=== PATIENT | male | born 1965 | race Caucasian/White ===

== ENCOUNTER 2017-10-10 15:49 | Emergency (ER) | payer OTHER, SELFPAY ==
[2017-10-10 15:50] VITALS: BP 135/94; PULSE 98; RESP 18; TEMP 36.7; O2SAT 98; BMI 26.1
[2017-10-10 16:09] LABS: Basophils % 0.4 % (0.1-2.0); Eosinophils # 0.3 K/mm3 (0.0-0.4); Eosinophils % 2.6 % (0.1-12.0); Hematocrit 47.4 % (42.0-52.0); Hemoglobin 15.6 g/dL (14.1-18.0); Lymphocytes # 3.6 K/mm3 (0.7-4.5); Lymphocytes % 35.1 K/mm3 (10-50); Mean Corpuscular Hemoglobin 29.5 pg (27.0-31.2); Mean Corpuscular Volume 89.3 fl (80-94); Mean Platelet Volume 7.8 fl (7.4-10.4); Monocytes # 0.7 K/mm3 (0.1-1.0); Neutrophils # 5.6 K/mm3 (1.8-7.8); Platelet Count 253 K/mm3 (142-424); Red Blood Count 5.31 M/mm3 (4.60-6.20); Red Cell Distribution Width 12.8 % (11.5-17.5); White Blood Count 10.2 K/mm3 (4.8-10.8)
--- NOTE | 2017-10-10 16:14 | HMH.EDGENADL ---
ED Disposition Clinical Impression: Epiploic appendagitis Disposition: Home, Self-Care Condition on Discharge: Good Additional Instructions: Additional instructions for ABDOMINAL PAIN: See your physician as soon as possible for further evaluation. Return immediately if worsening abdominal pain, vomiting, shortness of breath, fever, vomiting of blood or abdominal distention. Referrals: Deepika Santo [Primary Care Provider] - 10/12/17 - Critical Care Critical Care Time: No Attestation: On , the high probability of a clinically significant, sudden or life threatening deterioration of the following system(s) required my full and direct attention, intervention and personal management. The time I documented below is in addition to time spent performing reported procedures but includes the following listed in this critical care notation. Medical Decision Making Vital Signs: 10/10/17 15:50 Temperature 98.0 F Temperature Source Oral Pulse Rate [Right Brachial] 98 H Respiratory Rate 18 Blood Pressure [Right Arm] 135/94 Blood Pressure Mean [Right Arm] 107 Blood Pressure Source [Right Arm] Automatic Cuff Blood Pressure Position [Right Arm] Sitting 02 Sat by Pulse Oximetry 98 Oxygen Delivery Method Room Air - Lab Data Lab Results 10/10/17 16:00: WBC 10.2, RBC 5.31, Hgb 15.6, Hct 47.4, MCV 89.3, MCH 29.5, MCHC 33.0, RDW 12.8, Plt Count 253, MPV 7.8, Neut % (Auto) 55.0, Lymph % (Auto) 35.1, [place] % (Auto) 7.0, Eos % (Auto) 2.6, Baso % (Auto) 0.4, Neut # (Auto) 5.6, Lymph # (Auto) 3.6, [place] # (Auto) 0.7, Eos # (Auto) 0.3, Baso # (Auto) 0.0 10/10/17 16:00: Sodium 140, Potassium 3.9, Chloride 102, Carbon Dioxide 32, Anion Gap 9.9, BUN 14, Creatinine 1.39 H, Estimated Creat Clear 71, Estimated GFR 54 L, Est GFR ( Amer) 66, Glucose 120 H, Calcium 8.8, Total Bilirubin 0.3, AST 16, ALT 27, Alkaline Phosphatase 85, Total Protein 7.6, Albumin 3.8, Globulin 3.8 H, Albumin/Globulin Ratio 1.0 L 10/10/17 : Urine Color Yellow, Urine Appearance Clear, Urine pH 7.5, Ur Specific [place] 1.010, Urine Protein Negative, Urine Glucose (UA) Negative, Urine Ketones Negative, Urine Blood Negative, Urine Nitrate Negative, Urine Bilirubin Negative, Urine Urobilinogen 0.2, Ur Leukocyte Esterase Negative, Urine RBC Occasional, Urine WBC None, Ur Squamous Epith Cells Occasional, Urine Bacteria None Result diagrams: 10/10/17 16:00 10/10/17 16:00 Orders (Tests/Meds): ED MEDICATIONS Discontinued Medications Generic Name Dose Route Start Last Admin Trade Name David PRN Reason Stop Dose Admin Iopamidol 75 ml 10/10/17 16:57 10/10/17 16:59 [id number]; 75ml Vial IV 10/10/17 16:58 75 ml ONCE ONE Administration Sodium Chloride 1,000 ml 10/10/17 16:20 10/10/17 16:58 Sod Chlor 0.9% 1000ml Bag IV 10/10/17 16:21 1,000 ml BOLUS ONE Administration Sodium Chloride 10 ml 10/10/17 16:57 10/10/17 16:58 Rad-Saline Flush 10ml Syringe IV 10/10/17 16:58 10 ml ONCE ONE Administration - CT Data CT Scan: Abdomen, Pelvis Time Received: 17:[address] Reviewed: Yes: I have viewed the radiologist's interpretation Findings Narrative: Epiploic appendagitis left lower quadrant - Dirk Inquiry Pt receiving controlled substance: No Medical Decision Making Narrative: 4:20 PM: Declines pain medication. General Adult HPI - General Chief complaint: Abdominal Pain Stated complaint: Left Lower Abd Pain Mode of Arrival: Ambulatory Limitations: No Limitations Description of Symptoms (Recalled from ER Triage Doc. by RN): Pt reports L lower left abd pain x3 days, denies n/v/d. states today pain has been worse with movement - History of Present Illness HPI narrative: The patient complains of left lower quadrant pain for 3 days. Today it hurts worse when he moves and walks and therefore comes in for evaluation. No vomiting or diarrhea. He had some gas with it initially and thought passing gas might relie
[2017-10-10 16:21] LABS: Alanine Aminotransferase 27 U/L (12-78); Albumin Level 3.8 gm/dL (3.4-5.0); Alkaline Phosphatase 85 U/L (46-116); Anion Gap 9.9 mEq/L (5-15); Aspartate Amino Transferase 16 U/L (15-37); Bilirubin,Total 0.3 mg/dL (0.2-1.0); Blood Urea Nitrogen 14 mg/dL (7-18); Calcium 8.8 mg/dL (8.5-10.1); Carbon Dioxide 32 mmol/L (21.0-32.0); Chloride 102 mmol/L (98-107); Creatinine Clearance Estimated 71 mL/min (0-300); Creatinine,Serum 1.39 mg/dL (0.70-1.30); Estimated Glomerular Filt Rate 54 ml/min (>60); GFR (African American) 66 ML/MIN (>60); Globulin 3.8 gm/dl (1.3-3.2); Glucose 120 mg/dL (74-106); Potassium 3.9 mmoL/L (3.5-5.1); Sodium 140 mmol/L (136-145); Total Protein,Serum 7.6 gm/dL (6.4-8.2)
--- NOTE | 2017-10-10 16:25 | CT_ITS ---
CT abdomen pelvis w con CLINICAL INDICATION: Left lower quadrant pain ITS.REASON: LLQ PAIN ORDERING PHYSICIAN: Twin Allen MD PATIENT AGE: 51 years COMPARISON: None TECHNIQUE: Axial images obtained with sagittal and coronal reformats. PROCEDURE: Oral Contrast: None IV Contrast: 75 mL [id number]. FINDINGS: No acute finding in the lower chest. There is a small hiatal hernia. No focal liver lesion. There are 2 small foci of increased density along the anterior aspect of the fundus of the gallbladder possibly related to folds within the gallbladder. Ultrasound may confirm. Spleen, adrenal glands, and pancreas are unremarkable. No obstructing renal or ureteral calculi evident. No evidence of appendicitis. No intestinal obstruction or free air. There is a 12 mm area of fat density in the left lower quadrant anteriorly with surrounding stranding of the peritoneal fat. This is anterior to the descending colon and is consistent with epiploic appendagitis. No evidence of diverticulitis. No focal colonic wall thickening. Small calcific density is present in the left lower quadrant anteriorly. No acute bony anomalies. IMPRESSION: Epiploic appendagitis in the left lower quadrant
[2017-10-10 16:32] LABS: Microscopic, Urine URINE MICROSCOPIC (MICROSCOPIC)
[2017-10-10 16:35] LABS: Appearance,Urine CLEAR (Clear); Bilirubin,Urine Negative (Negative); Blood, Urine Negative (Negative); Color,Urine YELLOW (Yellow); Glucose,Urine (UA) Negative (Negative); Ketones,Urine Negative (Negative); Leukocyte Esterase,Urine Negative (Negative); Nitrate,Urine Negative (Negative); PH,Urine 7.5 (5.0-8.5); Protein,Urine Negative (Negative); Urobilinogen,Urine 0.2 EU/dl (0.2)
[2017-10-10 16:51] LABS: RBC,Urine Occasional #/hpf (0-3); Squamous Epithelial Cell,Urine Occasional #/hpf (0-5)
[2017-10-10 19:05] VITALS: BP 142/80; PULSE 85; RESP 18; TEMP 36.8; O2SAT 98
== END 2017-10-10 19:05 | disposition home or self-care (01) ==
PROVIDERS: Emergency Provider Emergency Medicine; PCP Family Medicine
DX: K63.89 Other specified diseases of intestine (principal)
CPT/HCPCS: 74177; 80053; 81001; 85025; 96365; 96374; 96375; 99282; Q9967

== ENCOUNTER 2020-05-11 18:13 | Emergency (ER) | payer OTHER, SELFPAY ==
[2020-05-11 19:10] VITALS: BP 137/86; PULSE 72; RESP 21; TEMP 36.8; O2SAT 99; BMI 27.3
--- NOTE | 2020-05-11 19:36 | HMH.EDUTC ---
[facility] [place] Impression: Encounter for laboratory testing for COVID-19 virus Disposition: Home, Self-Care Condition on Discharge: Good Instructions: Preventing the Spread of Coronavirus Discharge Instructions Additional Instructions: You was tested for today for COVID19 your test result should be back Tomorrow morning to see if your test results are back and the result You was given a handout with instructions for Self Quarantine and Self isolation for while you wait on test results and what to do if they are positive No work until negative COVID Referrals: Deepika Santo [Primary Care Provider] - As needed Forms: Work/School Release Time of Disposition: 19:38 Medical Decision Making - Dirk Inquiry Pt receiving controlled substance: No Dirk was queried for this patient: No Vital Signs: 05/11/20 19:10 Temperature 98.2 F Temperature Source Oral Pulse Rate [Right Brachial] 72 Respiratory Rate 21 Blood Pressure [Right Arm] 137/86 Blood Pressure Mean [Right Arm] 103 Blood Pressure Source [Right Arm] Automatic Cuff Blood Pressure Position [Right Arm] Sitting 02 Sat by Pulse Oximetry 99 Oxygen Delivery Method Room Air Orders (Tests/Meds): ORDERS Category Date Time Status Covid-19 Nasal PCR ([facility]) Routine Lab 05/11/20 19:09 [place] [facility] [place] - General Stated complaint: wants COVID test Time Seen by Provider: 05/11/20 19:37 Mode of Arrival: Ambulatory Source of Information: Patient Limitations: No Limitations Description of Symptoms (Recalled from Triage Doc. by RN): PATIENT REQUESTING COVID TEST; WAS EXPOSED SUNDAY, DENIES SYMPTOMS HEENT Symptoms (Recalled from RN notes): No Resp Symptoms (Recalled from RN notes): No Skin Symptoms (Recalled from RN notes): No MS Symptoms (Recalled from RN notes): No Functional Status (Recalled from RN notes): WNL - History of Present Illness Provider Complaint: Patient states that he was recently around sister in law that tested positive for COVID yesterday States that he was concerned because he was in such close proxemity to her and she wasnt having any symptoms so he wanted to get checked - Related Data Home Medications Medication Instructions Recorded Confirmed No Known Home Medications 10/10/17 10/10/17 Allergies Allergy/AdvReac Type Severity Reaction Status Date / Time No Known Allergies Allergy Verified 10/10/17 15:59 - Worker's Comp Is this a Worker's Comp case?: No [facility] History - Hepatitis A Screen Drug use history?: No High risk sexual behaviors?: No History of sexually transmitted infection?: No Currently employed?: No Childcare worker?: No Do you have indoor plumbing?: Yes Do you have electricity?: Yes Attestation statement:: This patient has been screened for Hepatitis A risk factors. I have reviewed the patient's past medical history: Yes Medical History: Denies:: Cancer, Diabetes Mellitus Type 1, Diabetes Mellitus Type 2, MRSA Amputation: No Fractures: No - Social History Smoking Status: Former smoker Alcohol Intake: never Occupational Status: other ROS Obtained: Yes All systems reviewed & no additional complaints, Yes Systems reviewed as appropriate & no additional complaints - Constitutional Constitutional: Reports system reviewed and no additional complaints, except as docu, Denies body ache, Denies chills, Denies fever(s), Denies headache(s) - Eyes Eyes: Reports system reviewed and no additional complaints, except as docu - ENT Ears, Nose, Mouth, and Throat: Reports system reviewed and no additional complaints, except as docu, Denies otalgia, Denies sinus pain, Denies sinus pressure, Denies sore throat - Cardiovascular Cardiovascular: Reports system reviewed and no additional complaints, except as docu - Respiratory Respiratory: No chest congestion, No cough, No dyspnea - Gastrointestinal Gastrointestingal: Reports: system reviewed and no additional complaints, except as docu. D
[2020-05-11 19:49] VITALS: BP 137/86; PULSE 72; RESP 21; TEMP 36.8; O2SAT 99
== END 2020-05-11 19:53 | disposition home or self-care (01) ==
PROVIDERS: Emergency Provider Nurse Practitioner; PCP Family Medicine
DX: Z20.828 Contact with and (suspected) exposure to other viral communicable diseases (principal)
CPT/HCPCS: 99201; U0003